=== PATIENT | male | born 1990 | race African-American/Black ===

== ENCOUNTER 2017-06-27 21:51 | Emergency (ER) | payer BC, OTHER ==
[~2017-06-27] VITALS: Ht 177.8 cm; Wt 95.0 kg
[~2017-06-27 21:51] MED LIST: CLIN1CAP6 PO; MEDR4PAK3 PO; PERC5TAB12 PO; ZOFR4TAB3 SL
[2017-06-27 21:55] VITALS: BP 146/88; PULSE 124; RESP 20; TEMP 101.2; O2SAT 96
[2017-06-27 21:58] VITALS: BP 121/73; PULSE 97; RESP 15; TEMP 98.9; O2SAT 100
[2017-06-27] MEDS ORDERED: OSEL75 PO (23:07)
[2017-06-27] MEDS ORDERED: ZOFR4TAB PO (23:07)
--- NOTE | 2017-06-27 23:08 | PD ---
HPI Chief Complaint: Cold / Flu Symptoms Time Seen by Provider: 22:52 Travel History International Travel<30 days: No Contact w/Intl Traveler<30days: No Traveled to known affect area: No History of Present Illness HPI Patient's a 27-year-old male presents emergency department for evaluation of fever body aches cough congestion with some mild nausea without vomiting for the past 2 days. Patient denies any sick contacts, states he did get a flu shot this year. Denies any sputum production diarrhea constipation. He has been taking some Tylenol at home for his body aches. Symptoms for the past 2 years, grossly worsening, associated signs symptoms as above, felt somewhat better with Tylenol PFSH Past Medical History Immunizations Current: Yes Tetanus Vaccination: Unknown Influenza Vaccination: No Social History Alcohol Use: No Tobacco Use: No Substance Use: No Allergies-Medications (Allergen,Severity, Reaction): Coded Allergies: penicillin G (Unverified Allergy, Intermediate, HIVES, 06/27/17) Reported Meds & Prescriptions Reported Meds & Active Scripts Active Tamiflu (Oseltamivir Phosphate) 75 Mg Cap 75 Mg PO BID 5 Days Zofran (Ondansetron HCl) 4 Mg Tab 4 Mg PO Q6HR PRN Review of Systems Except as stated in HPI: all other systems reviewed are Neg Physical Exam Narrative GENERAL: Well-nourished, well-developed patient. SKIN: Focused skin assessment warm/dry. HEAD: Normocephalic. EYES: No scleral icterus. No injection or drainage. ENT: TMs clear bilaterally, oropharynx minimally erythematous no edema no cobblestoning, uvula midline tonsils not seen NECK: Supple, trachea midline. No JVD or lymphadenopathy. CARDIOVASCULAR: Regular rate and rhythm without murmurs, gallops, or rubs. RESPIRATORY: Breath sounds equal bilaterally. No accessory muscle use. GASTROINTESTINAL: Abdomen soft, non-tender, nondistended. MUSCULOSKELETAL: No cyanosis, or edema. BACK: Nontender without obvious deformity. No CVA tenderness. Data Data Last Documented VS Vital Signs Date Time Temp Pulse Resp B/P (MAP) Pulse Ox O2 Delivery O2 Flow Rate FiO2 06/27/17 23:59 06/27/17 21:58 98.9 97 15 100 06/27/17 21:55 Room Air Orders Orders Ed Discharge Order (06/27/17 23:07) Acetaminophen (Tylenol) (06/27/17 23:15) Ondansetron Odt (Zofran Odt) (06/27/17 23:15) MDM Medical Decision Making Medical Screen Exam Complete: Yes Emergency Medical Condition: Yes Differential Diagnosis Influenza, pneumonia unlikely, URI. Narrative Course Patient room to the emergency department, appears well, symptomatic management, Tamiflu, Zofran. Discussed return to ED criteria, stable for discharge Diagnosis Primary Impression: Influenza-like illness Patient Instructions: General Instructions, Influenza (DC) Med/Other Pt SpecificInfo: Prescription(s) given Scripts Oseltamivir (Tamiflu) 75 Mg Cap 75 MG PO BID for Mgmt Viral Infection for 5 Days, #10 CAP 0 Refills Prov: Preet Stewart MD 06/27/17 Ondansetron (Zofran) 4 Mg Tab 4 MG PO Q6HR Y for NAUSEA OR VOMITING, #20 TAB 0 Refills Prov: Preet Stewart MD 06/27/17 Disposition: 01 DISCHARGE HOME Condition: Stable Preet Stewart MD Jun 27, 2017 23:08
[2017-06-27] MEDS ORDERED: ACETAMINOPHEN 325 MG TAB PO ONE (23:15)
[2017-06-27] MEDS ORDERED: ONDANSETRON ODT 4 MG TAB PO ONE (23:15)
== END 2017-06-28 00:22 | disposition home or self-care (01) ==
LOC: NEPD 21:51
DX: J11.1 Influenza due to unidentified influenza virus with other respiratory manifestations (principal)
CPT/HCPCS: 99284